=== PATIENT | female | born 1960 | race Two or more races ===

== ENCOUNTER 2021-12-29 12:08 | Inpatient (IN) | payer OTHER ==
[~2021-12-29] VITALS: Ht 132.1 cm; Wt 73.5 kg
[2021-12-29] MEDS ORDERED: TRINTELLIX5 MG PO (12:55)
[2021-12-29] MEDS ORDERED: PROTONIX40 M1 PO (12:56)
[2021-12-29] MEDS ORDERED: KLONOPIN (12:57)
[2021-12-29] MEDS ORDERED: LISINOPRIL10 MG PO (12:59)
[2022-01-11] MEDS ORDERED: PRILOSEC OTC20 MG PO (13:42)
[2022-01-11] MEDS ORDERED: QUESTRAN LIGHT210 GM PO (13:42)
[2022-01-11] MEDS ORDERED: ULTRACET PO (13:42)
== END 2022-01-11 15:03 | disposition home or self-care (01) | DRG 330 ==
LOC: ER 12:08 → MEDJ 18:07 → SURH 18:07 → SEC-K 18:07 → MEDJ 12-30 17:45 → SURH 01-02 18:47
PROVIDERS: ADMIT Surgery; ATTEND Surgery
PROC: 0DJD8ZZ Inspection of Lower Intestinal Tract, Via Natural or Artificial Opening Endoscopic (ICD-10-PCS; 2022-01-01)
PROC: 0DTL4ZZ Resection of Transverse Colon, Percutaneous Endoscopic Approach (ICD-10-PCS; 2022-01-02)
PROC: 07TC4ZZ Resection of Pelvis Lymphatic, Percutaneous Endoscopic Approach (ICD-10-PCS; 2022-01-02)
PROC: 0DN84ZZ Release Small Intestine, Percutaneous Endoscopic Approach (ICD-10-PCS; 2022-01-02)
PROC: 0DQ84ZZ Repair Small Intestine, Percutaneous Endoscopic Approach (ICD-10-PCS; 2022-01-02)
PROC: 0DJD8ZZ Inspection of Lower Intestinal Tract, Via Natural or Artificial Opening Endoscopic (ICD-10-PCS; 2022-01-02)
PROC: 0DTG4ZZ Resection of Left Large Intestine, Percutaneous Endoscopic Approach (ICD-10-PCS; principal; 2022-01-02 10:45)
PROC: 0D9670Z Drainage of Stomach with Drainage Device, Via Natural or Artificial Opening (ICD-10-PCS; 2022-01-04)
DX: C18.9 Malignant neoplasm of colon, unspecified (principal); K62.5 Hemorrhage of anus and rectum; K91.30 Postprocedural intestinal obstruction, unspecified as to partial versus complete; K91.89 Other postprocedural complications and disorders of digestive system